=== PATIENT | female | born 1945 | race Caucasian/White ===

== ENCOUNTER 2016-12-20 05:25 | Day surgery (SDC) | payer OTHER ==
[~2016-12-20] VITALS: Ht 152.4 cm; Wt 59.0 kg
[2016-12-20] MEDS ORDERED: ROCURONIUM BROMIDE 10 MG/ML (ZEMURON) IV ONE (07:20)
[2016-12-20] MEDS ORDERED: SEVOFLURANE 15 MIN GAS INH ONE (07:20)
[2016-12-20] MEDS ORDERED: ONDANSETRON HCL 4 MG/2 ML VIAL IVP ONE (07:20)
[2016-12-20] MEDS ORDERED: ePHEDrine sulfate 50 MG/ML VIAL IV ONE (07:20)
[2016-12-20] MEDS ORDERED: MIDAZOLAM HCL 5 MG/5 ML VIAL IVP ONE (07:20)
[2016-12-20] MEDS ORDERED: LR 1,000 ML IV.SOLN IV ONE (07:20)
[2016-12-20] MEDS ORDERED: PROPOFOL 200MG/ 20ML VIAL (DIPRIVAN) IV ONE (07:20)
[2016-12-20] MEDS ORDERED: fentaNYL CITRATE 250 MCG/5 ML AMP IV ONE (07:20)
[2016-12-20] MEDS ORDERED: LR 1,000 ML IV SCH (08:11)
[2016-12-20] MEDS ORDERED: MORPHINE 4 MG/ML INJ. SYRINGE IVP PRN ×3 (08:15)
[2016-12-20] MEDS ORDERED: METOCLOPRAMIDE HCL 10 MG/2 ML VIAL IVP PRN (08:15)
[2016-12-20] MEDS ORDERED: OXYCODONE/ACETAMINOPHEN 5-325 TABLET PO PRN (08:30)
[2016-12-20] MEDS ORDERED: PROMETHAZINE HCL 25 MG/ML AMP IM PRN (08:30)
[2016-12-20] MEDS ORDERED: HYDROmorphone 2 MG TAB PO PRN (08:30)
[2016-12-20] MEDS ORDERED: ONDANSETRON HCL 4 MG/2 ML VIAL IVP PRN (08:30)
[2016-12-20 09:32] VITALS: BP_SYST 108
== END 2016-12-20 12:25 | disposition home or self-care (01) ==
LOC: SDS 05:25 → SMU 05:25 → SDS 12:25
PROVIDERS: ATTEND Obstetrics & Gynecology
DX: N83.201 Unspecified ovarian cyst, right side (principal); Z88.0 Allergy status to penicillin; Z88.8 Allergy status to other drugs, medicaments and biological substances; Z90.49 Acquired absence of other specified parts of digestive tract; Z98.890 Other specified postprocedural states; Z80.3 Family history of malignant neoplasm of breast
CPT/HCPCS: 36415; 58661; 86886; 86900; 86901; 88305; C1727; J2250; J2405; J2704; J3010; J7120; 88304